=== PATIENT | male | born 1985 | race Two or more races ===

== ENCOUNTER 2022-11-13 22:17 | Emergency (ER) | payer OTHER ==
[~2022-11-13] VITALS: Ht 160 cm; Wt 67.0 kg
[2022-11-14 02:18] VITALS: BP 121/71
== END 2022-11-14 02:35 | disposition home or self-care (01) ==
LOC: ER 22:17 → EDBD 22:17 → ER 11-14 02:30
DX: M54.9 Dorsalgia, unspecified (principal); M79.18 Myalgia, other site